=== PATIENT | female | born 1990 | race Caucasian/White ===

== ENCOUNTER → 2018-03-20 07:23 | Outpatient (CLI) | payer OTHER, MEDICAID, SELFPAY ==
[2018-03-20 08:13] LABS: Add Manual Diff / Slide Review NO; Basophils Percent Auto 0.4 % (0-2); Eosinophils Percent Auto 1.1 % (2-4); Hematocrit 38.7 % (36-46); Hemoglobin 12.9 g/dL (12.0-16.0); Lymphocytes Percent Auto 21.5 % (25-40); Mean Corpuscular HGB Conc 33.2 % (30-36); Mean Corpuscular Hemoglobin 27.3 PG (26-34); Mean Corpuscular Volume 82.2 fL (80-100); Monocytes Percent Auto 5.2 % (3-14); Neutrophils Absolute Auto 5500 /uL (3000-5900); Neutrophils Percent Auto 71.8 % (50-75); Platelet Count 286 X10^3/uL (150-400); Red Blood Cell Count 4.72 X10^6/uL (4.0-5.2); White Blood Cell Count 7.7 X10^3/uL (4.5-11.0)
[2018-03-20 08:51] LABS: Alanine Aminotransferase 21 IU/L (9-52); Albumin 4.3 g/dL (3.5-5.0); Albumin Globulin Ratio 1.4 (1.0-2.8); Alkaline Phosphatase 64 U/L (38-126); Aspartate Aminotransferase 18 IU/L (14-36); BUN Creatinine Ratio 11.7 (6-22); Bilirubin Total 0.4 mg/dL (0.2-1.3); Blood Urea Nitrogen 7 mg/dL (7-17); Calcium 9.5 mg/dL (8.4-10.2); Carbon Dioxide 25 mmol/L (22-32); Chloride 104 mmol/L (98-107); Cholesterol 168 mg/dL (140-199); Estimated Glomerular Filt Rate > 60.0 mL/min (>60); Globulin 3.1 g/dL (1.7-4.1); Glucose 96 mg/dL (70-100); HDL Cholesterol 52 mg/dL (40-60); HEMOLYSIS < 15 (0-50); LDL Cholesterol Calculated 92 mg/dL (<100); Potassium 3.9 mmol/L (3.4-5.1); Sodium 141 mmol/L (137-145); Total Protein 7.4 g/dL (6.3-8.2); Triglycerides 122 mg/dL (35-150)
[2018-03-20 09:04] LABS: Vitamin D 25 Hydroxy (D3) 34.4 ng/mL (30.0-100.0)
[2018-03-20 09:17] LABS: Thyroid Stimulating Hormone 0.73 uIU/mL (0.47-4.68)
== END ==
PROVIDERS: PCP Physician Assistant Medical; Visit Provider Physician Assistant Medical
DX: Z00.00 Encounter for general adult medical examination without abnormal findings (principal); F32.9 Major depressive disorder, single episode, unspecified; E55.9 Vitamin D deficiency, unspecified
CPT/HCPCS: 36415; 80053; 80061; 82306; 84443; 85025

== ENCOUNTER 2024-07-03 11:17 | Emergency (ER) | payer OTHER, MEDICAID, SELFPAY ==
[2024-07-03 11:23] VITALS: BP 120/82; PULSE 80; RESP 16; TEMP 36.7; O2SAT 98; BMI 43.3
--- NOTE | 2024-07-03 11:25 | ED.RECABL ---
HPI - Recheck/Abnormal Lab/Rx <Caitlyn Davis PA-C - Last Filed: 07/03/24 11:36> General Chief Complaint: Recheck/Abnormal Lab/Rx Stated Complaint: medication refill Time Seen by Provider: 07/03/24 11:25 History of Present Illness HPI narrative: Pleasant 33 old female known depression, takes Wellbutrin and fluoxetine has been on medications for an extended period of time. Unable to get into her old primary care doctor has currently left, starting with a new primary care doctor, has an appointment on July 25, currently is going to run out of her medications. Here requesting a refill. No complaints currently. Related Data Previous Rx's Medication Instructions Recorded bupropion HCl 300 mg 24 hr tablet, 300 mg PO DAILY #90 tabs 07/03/24 extended release (Wellbutrin XL) fluoxetine 20 mg capsule 20 mg PO DAILY #90 caps 07/03/24 Allergies Allergy/AdvReac Type Severity Reaction Status Date / Time amoxicillin [From Augmentin] Allergy Rash Verified 07/03/24 11:27 clavulanic acid Allergy Rash Verified 07/03/24 11:27 [From Augmentin] Review of Systems <Caitlyn Davis PA-C - Last Filed: 07/03/24 11:36> Review of Systems Narrative: Negative except as above Patient History <Caitlyn Davis PA-C - Last Filed: 07/03/24 11:36> Social History Smoking Status: Former smoker Exam <Caitlyn Davis PA-C - Last Filed: 07/03/24 11:36> Initial Vital Signs Initial Vital Signs: Vital Signs Temperature 98.0 F 07/03/24 11:23 Pulse Rate 80 07/03/24 11:23 Respiratory Rate 16 07/03/24 11:23 Blood Pressure 120/82 07/03/24 11:23 Pulse Oximetry 98 07/03/24 11:23 Oxygen Delivery Method Room Air 07/03/24 11:23 Reviewed Const General: cooperative, healthy appearing, comfortable, well developed, well groomed, No acute distress, No in distress and No anxious Eyes General: Yes appearance normal, both eyes and all related structures Pupils: PERRL EOM: EOM intact bilaterally Skin Other: Warm pink and dry Neuro General: patient alert, patient awake, patient oriented x3, oriented and gait normal Extrem Other: Range of motion, strength, pulses, cap refill preserved in the upper and lower extremities Psych Other: Parents, mental status, speech, movement, mood, affect, attitude, thought process, thought content, judgment are all intact <Neeru Faustin MD - Last Filed: 07/04/24 07:15> Initial Vital Signs Initial Vital Signs: Vital Signs Temperature 98.0 F 07/03/24 11:23 Pulse Rate 80 07/03/24 11:23 Respiratory Rate 16 07/03/24 11:23 Blood Pressure 120/82 07/03/24 11:23 Pulse Oximetry 98 07/03/24 11:23 Oxygen Delivery Method Room Air 07/03/24 11:23 Scores <Caitlyn Davis PA-C - Last Filed: 07/03/24 11:36> GCS Citation: 15 Course <Caitlyn Davis PA-C - Last Filed: 07/03/24 11:36> Vital Signs Vital signs: Vital Signs - 8 hr 07/03/24 11:23 Temperature 98.0 F Pulse Rate 80 Respiratory Rate 16 Blood Pressure 120/82 Pulse Oximetry 98 Oxygen Delivery Method Room Air Reviewed <Neeru Faustin MD - Last Filed: 07/04/24 07:15> Vital Signs Vital signs: Vital Signs - 8 hr 07/03/24 11:23 Temperature 98.0 F Pulse Rate 80 Respiratory Rate 16 Blood Pressure 120/82 Pulse Oximetry 98 Oxygen Delivery Method Room Air MDM - Recheck/Abnormal Lab/Rx <Caitlyn Davis PA-C - Last Filed: 07/03/24 11:36> MDM Narrative Medical decision making narrative: 33-year-old female history of depression, has been on fluoxetine and Wellbutrin for an extended period of time, currently her primary care doctor is leaving, she has an appointment on July 25 with her new provider. Currently is going to run out of her medications. Here requesting a refill. She has no physical complaints. Has been on the medications for an extended period of time. No recent changes in her medications. Here requesting a med refill. Patient has depression. Refill for medications. Discharge Plan Departure Patient Disposition: Home Clinical Impression: Encounter for medication refill Depression Qualifiers: Depression Type: unspecified Qualified Code(s): F32.A - Depression, unspecified Activity Restrictions/Additional Instructions: I refilled her medications I gave you 90 days' worth Please follow up with your primary care doctor appointment Prescriptions: New bupropion HCl [Wellbutrin XL] 300 mg tablet extended release 24 hr 300 mg PO DAILY Qty: 90 0RF fluoxetine 20 mg capsule 20 mg PO DAILY Qty: 90 0RF Referrals: Carin Garrison MD [Primary Care Provider] - Stand Alone Forms: Patient Portal/API ED Sign-out <Neeru Faustin MD - Last Filed: 07/04/24 07:15> Cosign ED Attending Cosignature Attestation: I was immediately available in the department for consultation throughout this patient's visit. Neeru Faustin MD
== END 2024-07-03 11:35 | disposition home or self-care (01) ==
PROVIDERS: Emergency Provider Physician Assistant; PCP Family Medicine
DX: Z76.0 Encounter for issue of repeat prescription (principal); F32.A Depression, unspecified
CPT/HCPCS: 99281

== ENCOUNTER → 2024-08-21 13:10 | Outpatient (CLI) | payer OTHER, MEDICAID, SELFPAY ==
[2024-08-27 14:12] LABS: Chlamydia trachomatis Negative (Negative); Mycoplasma genitalium Negative (Negative); Neisseria gonorrhoeae Negative (Negative)
== END ==
PROVIDERS: PCP Family Medicine; Visit Provider Family Medicine
DX: Z11.3 Encounter for screening for infections with a predominantly sexual mode of transmission (principal)
CPT/HCPCS: 87491; 87563; 87591